=== PATIENT | male | born 1970 | race Caucasian/White ===

== ENCOUNTER 2017-06-23 10:12 | Emergency (ER) | payer BC ==
[2017-06-23] MEDS ORDERED: methylPREDNISolone Sodium Succinate 125 MG/2 ML SDV IVPUSH ONE (10:57)
[2017-06-23] MEDS ORDERED: HYDROmorphone 1 MG/ML Syringe IVPUSH ONE (10:57)
[2017-06-23] MEDS ORDERED: Cyclobenzaprine 10 MG Tab PO ONE (10:59)
--- NOTE | 2017-06-23 11:24 | EDM.PDOC ---
ED HPI GENERAL MEDICAL PROBLEM - General Chief Complaint: Back Pain or Injury Stated Complaint: BAD BACK PAIN Time Seen by Provider: 06/23/17 10:51 Source of Information: Reports: Patient, RN, RN Notes Reviewed History Limitations: Reports: No Limitations - History of Present Illness INITIAL COMMENTS - FREE TEXT/NARRATIVE: Patient presents to ER with severe left hip and leg pain. States he was stretching on night. He stretched to far and had increased pain since yesterday a.m. Disc repair 14 months ago. Rates pain 10/10 sharp and stabbing. Duration: Constant Location: Reports: Upper Extremity, Left Quality: Reports: Ache Severity: Moderate Improves with: Reports: None Worsens with: Reports: None Associated Symptoms: Reports: No Other Symptoms Left Lower Back Pain Score (Numeric/FACES): 10 - Related Data Allergies Allergy/AdvReac Type Severity Reaction Status Date / Time No Known Allergies Allergy Verified 06/23/17 10:29 Home Meds: Home Meds Multivitamin [Multivitamins] 1 each PO DAILY 06/23/17 [History] Past Medical History Musculoskeletal History: Reports: Back Pain, Chronic - Past Surgical History Musculoskeletal Surgical History: Reports: Other (See Below) Other Musculoskeletal Surgeries/Procedures:: surgery on bulged L 4L5 disc Social & Family History - Tobacco Use Smoking Status *Q: Never Smoker Second Hand Smoke Exposure: No - Recreational Drug Use Recreational Drug Use: No Review of Systems - Review of Systems Review Of Systems: ROS reveals no pertinent complaints other than HPI. ED EXAM, GENERAL - Physical Exam Exam: See Below Exam Limited By: No Limitations General Appearance: Alert, WD/WN, No Apparent Distress Eye Exam: Bilateral Eye: Normal Inspection Ears: Normal External Exam, Normal Canal, Hearing Grossly Normal, Normal TMs Nose: Normal Inspection, Normal Mucosa, No Blood Throat/Mouth: Normal Inspection, Normal Lips, Normal Teeth, Normal Gums, Normal Oropharynx, Normal Voice, No Airway Compromise Head: Atraumatic, Normocephalic Neck: Normal Inspection, Supple, Non-Tender, Full Range of Motion Respiratory/Chest: No Respiratory Distress, Lungs Clear, Normal Breath Sounds, No Accessory Muscle Use, Chest Non-Tender Cardiovascular: Normal Peripheral Pulses, Regular Rate, Rhythm, No Edema, No Gallop, No JVD, No Murmur, No Rub GI/Abdominal: Normal Bowel Sounds, Soft, Non-Tender, No Organomegaly, No Distention, No Abnormal Bruit, No Mass (Male) Exam: Deferred Rectal (Males) Exam: Deferred Back Exam: Normal Inspection, Full Range of Motion, NT Extremities: Other (severe pain left hip radiating down left leg to mid thigh. It is sharp and stabbing pains with some numbness as well as range of motion.) Neurological: Alert, Oriented, CN II-XII Intact, Normal Cognition, Normal Gait, Normal Reflexes, No Motor/Sensory Deficits Psychiatric: Tearful Skin Exam: Warm, Dry, Intact, Normal Color, No Rash Lymphatic: No Adenopathy Course - Vital Signs Last Recorded V/S: Last Vital Signs Temp 97.9 F 06/23/17 11:52 Pulse 64 06/23/17 11:52 Resp 16 06/23/17 11:52 BP 115/71 06/23/17 11:52 Pulse Ox 95 06/23/17 11:52 - Orders/Labs/Meds Meds: Medications Discontinued Medications Generic Name Dose Route Start Last Admin Trade Name Pennie PRN Reason Stop Dose Admin Cyclobenzaprine HCl 10 mg 06/23/17 10:59 06/23/17 12:11 Flexeril PO 06/23/17 11:00 Not Given ONETIME ONE Hydromorphone HCl 1 mg 06/23/17 10:57 06/23/17 11:03 Dilaudid IVPUSH 06/23/17 10:58 1 mg ONETIME ONE Administration Methylprednisolone Sodium Succinate 125 mg 06/23/17 10:57 06/23/17 11:08 Solu-Medrol IVPUSH 06/23/17 10:58 125 mg ONETIME ONE Administration Departure - Departure Time of Disposition: 11:35 Disposition: Home, Self-Care 01 Clinical Impression: Radiculopathy of lumbosacral region - Discharge Information Instructions: Back Injury Prevention, [id number], Muscle Strain, [id number] , Back Pain, Adult, [id number], Pain Medicine Instructions, [id number] Referrals: PCP,None [Primary Care Provider] - Forms: ED Department Discharge Additional Instructions: RX: Flexeril, Medrol dose pack, [place] Rest, ice and heat alternate. Follow up with your primary care facility next week.
== END 2017-06-23 12:26 | disposition home or self-care (01) ==
LOC: DL.ED 10:12
DX: M54.17 Radiculopathy, lumbosacral region (principal)
CPT/HCPCS: 96374; 96375; 99283; J1170; J2930

== ENCOUNTER 2022-06-17 09:41 | Emergency (ER) | payer BC ==
[2022-06-17] MEDS ORDERED: methylPREDNISolone Sodium Succinate 40 MG/1 ML SDV IM ONE (10:04)
[2022-06-17] MEDS ORDERED: Orphenadrine 60 MG/2 ML Inj IM ONE (10:04)
[2022-06-17] MEDS ORDERED: Acetaminophen/HYDROcodone 325-5 MG Tab PO ONE (10:05)
== END 2022-06-17 10:58 | disposition home or self-care (01) ==
LOC: DL.ED 09:41
DX: M54.42 Lumbago with sciatica, left side (principal)
CPT/HCPCS: 96372; 99283; A9270; J2360; J2920

== ENCOUNTER 2025-02-24 11:20 | Emergency (ER) | payer BC ==
[2025-02-24] MEDS: Ketorolac 30 MG/ML SDV IM ONE (12:00)
== END 2025-02-24 12:36 | disposition home or self-care (01) ==
LOC: DL.ED 11:20
DX: M54.32 Sciatica, left side (principal)
CPT/HCPCS: 96372; 99283; J1885; J3360